=== PATIENT | female | born 1980 | race Caucasian/White ===

== ENCOUNTER 2018-09-08 19:18 | Emergency (ER) | payer BC ==
[2018-09-08] MEDS ORDERED: Ondansetron 4 MG Tab.DIS PO ONE (19:19)
[2018-09-08] MEDS ORDERED: Sodium Chloride 0.9% 1,000 ML IV ONE (19:38)
[2018-09-08] MEDS ORDERED: Ondansetron 4 MG/2 ML SDV IVPUSH PRN (19:59)
[2018-09-08] MEDS ORDERED: Pantoprazole 40 MG Vial IVPUSH SCH (20:00)
--- NOTE | 2018-09-08 20:04 | EDM.PDOC ---
ED HPI GENERAL MEDICAL PROBLEM - General Chief Complaint: Gastrointestinal Problem Stated Complaint: vomiting, epigastric pain Time Seen by Provider: 09/08/18 19:52 Source of Information: Reports: Patient History Limitations: Reports: No Limitations - History of Present Illness INITIAL COMMENTS - FREE TEXT/NARRATIVE: Started with nausea and mid abdominal pain Wednesday. Son and have had some of the same mid epigastric pain also. Has been dry heaving for the last 2 days. Has not kept anything down the last 1-2 days. Today she was vomiting water. She has urinated today. No fever with it. Has not taken any pain meds from her ankle surgery since yesterday AM. Had been taking a lot of advil prior to that and had been told that she needed to quit because of the healing effects of it. No diarrhea with it. States that the pain is midepigastric in nature. Does have some radiation into the right and left upper quadrants but mainly mid epigastric. Onset: Gradual Location: Reports: Abdomen Quality: Reports: Sharp Associated Symptoms: Reports: Nausea/Vomiting. 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: Endometrial Ablation, Endometriosis Neurological History: Reports: Migraines, Seizure Endocrine/Metabolic History: Reports: Obesity/BMI 30+ - Past Surgical History HEENT Surgical History: Reports: Adenoidectomy, Myringotomy w Tube(s), Oral Surgery, Tonsillectomy, Other (See Below) Other HEENT Surgeries/Procedures: ear drum reconstruction Female Surgical History: Reports: Other (See Below) Other Female Surgeries/Procedures: tubal removals Musculoskeletal Surgical History: Reports: Other (See Below) Other Musculoskeletal Surgeries/Procedures:: left ankle surgery, right tib/fib repair Social & Family History - Tobacco Use Smoking Status *Q: Never Smoker - Caffeine Use Caffeine Use: Reports: None - Recreational Drug Use Recreational Drug Use: No ED ROS GENERAL - Review of Systems Review Of Systems: See Below Constitutional: Denies: Fever, Chills HEENT: Reports: No Symptoms Respiratory: Reports: No Symptoms Cardiovascular: Reports: No Symptoms GI/Abdominal: Reports: Abdominal Pain, Nausea, Vomiting. Denies: Constipation, Diarrhea : Reports: No Symptoms Musculoskeletal: Reports: No Symptoms Skin: Reports: No Symptoms Neurological: Reports: No Symptoms ED EXAM, GI/ABD - Physical Exam Exam: See Below Exam Limited By: No Limitations General Appearance: Alert, WD/WN, No Apparent Distress Nose: Normal Inspection Throat/Mouth: Normal Inspection, Normal Oropharynx, No Airway Compromise Head: Atraumatic, Normocephalic Neck: Normal Inspection, Supple Respiratory/Chest: No Respiratory Distress, Lungs Clear, Normal Breath Sounds Cardiovascular: Regular Rate, Rhythm GI/Abdominal Exam: Normal Bowel Sounds, Soft, Tender (to the midepigastric area. ) Extremities: Normal Inspection, Non-Tender, Normal Capillary Refill, Other ( left foot and lower leg does have a boot on it from recent ankle surgery.) Neurological: Alert, Oriented, Normal Cognition Psychiatric: Normal Affect Skin Exam: Warm, Dry, Intact, Normal Color Course - Vital Signs Last Recorded V/S: Last Vital Signs Temp 98.8 F 09/08/18 19:19 Pulse 89 09/08/18 19:19 Resp 16 09/08/18 19:19 BP 134/93 H 09/08/18 20:49 Pulse Ox 97 09/08/18 19:19 - Orders/Labs/Meds Labs: Laboratory Tests 09/08/18 09/08/18 09/08/18 Range/Units 19:50 19:50 19:50 WBC 4.4 L (5.0-10.0) 10^3/uL RBC 4.53 (4.00-5.50) 10^6/uL Hgb 13.5 (12.0-16.0) g/dL Hct 40.8 (37.0-47.0) % MCV 90.1 (82.0-94.0) fL MCH 29.8 (27.0-32.0) pg MCHC 33.1 (33.0-38.0) g/dL RDW Coeff of Scott 12.6 (11.0-15.0) % Plt Count 313 (150-400) 10^3/uL Neut % (Auto) 76.0 (35-85) % Lymph % (Auto) 17.6 (10-55) % [place] % (Auto) 5.5 (0-16) % Eos % (Auto) 0.7 (0-5) % Baso % (Auto) 0.2 (0-3) % Neut # (Auto) 3.33 (1.80-7.00) 10^3/uL Lymph # (Auto) 0.77 L (1.00-4.80) 10^3/uL [place] # (Auto) 0.24 (0.00-0.80) 10^3/uL Eos # (Auto) 0.03 (0.00-0.45) 10^3/uL Baso # (Auto) 0.01 10^3/uL Sodium 139 (136-145) mEq/L Potassium 3.2 L (3.5-5.0) mEq/L Chloride 101 (98-106) mEq/L Carbon Dioxide 25 (21-32) mmol/L BUN 7 (7-18) mg/dL Creatinine 0.5 L (0.6-1.0) mg/dL Est Cr Clr Drug Dosing 134.32 mL/min Estimated GFR (MDRD) > 60 (>=60) mL/min Glucose 115 H (75-99) mg/dL Calcium 8.8 (8.4-10.1) mg/dL Total Bilirubin 0.4 (0.0-1.0) mg/dL AST 15 (15-37) U/L ALT 17 (12-78) U/L Alkaline Phosphatase 86 (46-116) U/L C-Reactive Protein 0.2 (0.2-0.8) mg/dL Total Protein 7.2 (6.4-8.2) g/dL Albumin 4.0 (3.4-5.0) g/dL Amylase 38 (25-115) U/L Lipase 90 (73-393) U/L Urine Color (YELLOW) Urine Appearance (CLEAR) Urine pH (4.5-8.0) Ur Specific [place] (1.003-1.020) Urine Protein (NEGATIVE) mg/dL Urine Glucose (UA) (NEGATIVE) mg/dL Urine Ketones (NEGATIVE) mg/dL Urine Occult Blood (NEGATIVE) Urine Nitrite (NEGATIVE) Urine Bilirubin (NEGATIVE) Urine Urobilinogen (0.2-1.0) EU/dL Ur Leukocyte Esterase (NEGATIVE) Urine RBC (0-5) /HPF Urine WBC (0-5) /HPF Ur Squamous Epith Cells (NOT SEEN) /HPF Urine Bacteria (NOT SEEN) /HPF 09/08/18 Range/Units 20:21 WBC (5.0-10.0) 10^3/uL RBC (4.00-5.50) 10^6/uL Hgb (12.0-16.0) g/dL Hct (37.0-47.0) % MCV (82.0-94.0) fL MCH (27.0-32.0) pg MCHC (33.0-38.0) g/dL RDW Coeff of [place] (11.0-15.0) % Plt Count (150-400) 10^3/uL Neut % (Auto) (35-85) % Lymph % (Auto) (10-55) % [place] % (Auto) (0-16) % Eos % (Auto) (0-5) % Baso % (Auto) (0-3) % Neut # (Auto) (1.80-7.00) 10^3/uL Lymph # (Auto) (1.00-4.80) 10^3/uL [place] # (Auto) (0.00-0.80) 10^3/uL Eos # (Auto) (0.00-0.45) 10^3/uL Baso # (Auto) 10^3/uL Sodium (136-145) mEq/L Potassium (3.5-5.0) mEq/L Chloride (98-106) mEq/L Carbon Dioxide (21-32) mmol/L BUN (7-18) mg/dL Creatinine (0.6-1.0) mg/dL Est Cr Clr Drug Dosing mL/min Estimated GFR (MDRD) (>=60) mL/min Glucose (75-99) mg/dL Calcium (8.4-10.1) mg/dL Total Bilirubin (0.0-1.0) mg/dL AST (15-37) U/L ALT (12-78) U/L Alkaline Phosphatase (46-116) U/L C-Reactive Protein (0.2-0.8) mg/dL Total Protein (6.4-8.2) g/dL Albumin (3.4-5.0) g/dL Amylase (25-115) U/L Lipase (73-393) U/L Urine Color Yellow (YELLOW) Urine Appearance Cloudy (CLEAR) Urine pH 6.5 (4.5-8.0) Ur Specific [place] 1.015 (1.003-1.020) Urine Protein Negative (NEGATIVE) mg/dL Urine Glucose (UA) Negative (NEGATIVE) mg/dL Urine Ketones 80 H (NEGATIVE) mg/dL Urine Occult Blood Small H (NEGATIVE) Urine Nitrite Negative (NEGATIVE) Urine Bilirubin Negative (NEGATIVE) Urine Urobilinogen 0.2 (0.2-1.0) EU/dL Ur Leukocyte Esterase Small H (NEGATIVE) Urine RBC 0-5 (0-5) /HPF Urine WBC 10-20 H (0-5) /HPF Ur Squamous Epith Cells Many H (NOT SEEN) /HPF Urine Bacteria Moderate H (NOT SEEN) /HPF Meds: Medications Discontinued Medications Generic Name Dose Route Start Last Admin Trade Name Freq PRN Reason Stop Dose Admin Sodium Chloride 1,000 mls @ 999 mls/hr 09/08/18 19:38 09/08/18 19:47 Normal Saline IV 09/08/18 20:38 999 mls/hr .BOLUS ONE Administration Ondansetron HCl 4 mg 09/08/18 19:59 09/08/18 20:07 Zofran IVPUSH 4 mg Q6H PRN Administration Nausea Ondansetron HCl 1 packet 09/08/18 20:37 09/08/18 20:44 Take Home: Ondansetron Odt 4 Mg, 2 Tab Pack PO 09/08/18 20:38 1 packet ONETIME ONE Administration Ondansetron HCl 8 mg 09/08/18 19:19 Zofran Odt PO 09/08/18 19:20 .STK-MED ONE Pantoprazole Sodium 40 mg 09/08/18 20:00 09/08/18 20:04 Protonix Iv IVPUSH 40 mg Q24H FAUSTINA Administration - Re-Assessments/Exams Free Text/Narrative Re-Assessment/Exam: 09/08/18 20:33 Discussed lab results with pt and . Zofran is helping with the nausea. Fluids are continuing to run. Wll infuse and then discharge with zofran for nausea and have her start prilosec OTC tomorrow. Departure - Departure Time of Disposition: 20:40 Disposition: Home, Self-Care 01 Condition: Good Clinical Impression: Gastroenteritis - Discharge Information *PRESCRIPTION DRUG MONITORING PROGRAM REVIEWED*: Not Applicable *COPY OF PRESCRIPTION DRUG MONITORING REPORT IN PATIENT PHIL: Not Applicable Instructions: Viral Gastroenteritis, Adult Referrals: PCP,None [Primary Care Provider] - Forms: ED Department Discharge Additional Instructions: zofran 4 mg ODT every 6 hours as needed Start omeprazole 20 mg daily tomorrow push fluids as much as possible avoid milk and milk products until pain is resolved. Recheck if any new concerns. Needs to have BP rechecked in a week or sooner to make sure it is coming down. - Problem List & Annotations (1) Gastroenteritis SNOMED Code(s): 85103500 Code(s): K52.9 - NONINFECTIVE GASTROENTERITIS AND COLITIS, UNSPECIFIED Status: Acute Priority: High - Problem List Review Problem List Initiated/Reviewed/Updated: Yes
[2018-09-08 20:10] LABS: CHLORIDE,CL 101 mEq/L (98-106); SODIUM,NA 139 mEq/L (136-145)
[2018-09-08] MEDS ORDERED: Take Home: Ondansetron 4 MG Tab.DIS, 2 Tab Pack PO ONE (20:37)
== END 2018-09-08 20:53 | disposition home or self-care (01) ==
LOC: CC.ED 19:18
DX: K52.9 Noninfective gastroenteritis and colitis, unspecified (principal); Z88.1 Allergy status to other antibiotic agents; Z88.8 Allergy status to other drugs, medicaments and biological substances
CPT/HCPCS: 36415; 80053; 81001; 82150; 83690; 85025; 86140; 96361; 96374; 96375; 99284-25; A9270-GY; C9113; J2405; J7030

== ENCOUNTER 2021-05-10 11:49 | Emergency (ER) | payer BC ==
[2021-05-10] MEDS ORDERED: Benzonatate 100 MG Cap PO ONE (12:52)
[2021-05-10] MEDS ORDERED: Albuterol 8 GM Inhaler INH STA (12:52)
[2021-05-10] MEDS ORDERED: Ondansetron 4 MG Tab.DIS PO ONE (12:52)
[2021-05-10] MEDS ORDERED: Ketorolac 60 MG/2 ML SDV IM ONE (12:55)
[2021-05-10] MEDS ORDERED: Take Home: Ondansetron 4 MG Tab.DIS, 2 Tab Pack PO ONE (12:55)
[2021-05-10] MEDS ORDERED: Famotidine 20 MG Tab PO STA (12:57)
--- NOTE | 2021-05-10 13:15 | EDM.PDOC ---
ED HPI GENERAL MEDICAL PROBLEM - General Chief Complaint: General Stated Complaint: "I think I have pneumonia" Time Seen by Provider: 05/10/21 11:55 Source of Information: Reports: Patient History Limitations: Reports: No Limitations - History of Present Illness Onset Date: 04/28/21 Duration: Getting Worse Location: Reports: Generalized Quality: Reports: Ache Severity: Mild Improves with: Reports: Medication, Rest Worsens with: Reports: Breathing, Movement Context: Reports: Sick Contact Associated Symptoms: Reports: Cough, Malaise, Nausea/Vomiting Treatments FOLLOW UP CLERK: Reports: Acetaminophen - Related Data Allergies Allergy/AdvReac Type Severity Reaction Status Date / Time doxycycline AdvReac Nausea Verified 05/10/21 11:50 erythromycin base AdvReac Nausea Verified 05/10/21 11:50 Tetracyclines AdvReac Nausea Verified 05/10/21 11:50 Home Meds: Home Meds Hydrocodone/Acetaminophen [Hydrocodon-Acetaminophen 5-325] 1 - 2 each PO Q4H PRN 09/08/18 [History] Ondansetron [Zofran ODT] 4 mg PO Q6H PRN 09/08/18 [History] Past Medical History HEENT History: Reports: Impaired Vision, Sinusitis 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: Endometrial Ablation, Endometriosis Neurological History: Reports: Migraines, Seizure Endocrine/Metabolic History: Reports: Obesity/BMI 30+ - Past Surgical History HEENT Surgical History: Reports: Adenoidectomy, Myringotomy w Tube(s), Oral Surgery, Tonsillectomy, Other (See Below) Other HEENT Surgeries/Procedures: ear drum reconstruction Female Surgical History: Reports: Other (See Below) Other Female Surgeries/Procedures: tubal removals Musculoskeletal Surgical History: Reports: Other (See Below) Other Musculoskeletal Surgeries/Procedures:: left ankle surgery, right tib/fib repair Social & Family History - Caffeine Use Caffeine Use: Reports: None ED ROS GENERAL - Review of Systems Review Of Systems: See Below Constitutional: Reports: Malaise, Fatigue HEENT: Reports: No Symptoms Respiratory: Reports: Cough Cardiovascular: Reports: No Symptoms Endocrine: Reports: No Symptoms GI/Abdominal: Reports: Nausea : Reports: No Symptoms Musculoskeletal: Reports: No Symptoms Skin: Reports: No Symptoms Neurological: Reports: No Symptoms Psychiatric: Reports: No Symptoms Hematologic/Lymphatic: Reports: No Symptoms Immunologic: Reports: No Symptoms ED EXAM, GENERAL - Physical Exam Exam: See Below Exam Limited By: No Limitations General Appearance: Alert, No Apparent Distress Ears: Normal External Exam Nose: Normal Inspection, Normal Mucosa Throat/Mouth: Normal Inspection, Normal Lips, Normal Teeth, Normal Gums, Normal Oropharynx, Normal Voice, No Airway Compromise Head: Atraumatic, Normocephalic Neck: Normal Inspection, Supple, Non-Tender, Full Range of Motion Respiratory/Chest: No Respiratory Distress, Lungs Clear, No Accessory Muscle Use, Chest Non-Tender, Other (lungs faintly coarse) Cardiovascular: Normal Peripheral Pulses, Regular Rate, Rhythm GI/Abdominal: Normal Bowel Sounds, Soft, Non-Tender, No Distention Back Exam: Full Range of Motion Extremities: Normal Inspection, Normal Range of Motion, Non-Tender, Normal Capillary Refill Neurological: Alert, Oriented, Normal Cognition, Normal Gait, No Motor/Sensory Deficits Psychiatric: Normal Affect, Normal Mood Skin Exam: Warm, Dry, Intact, Normal Color, No Rash Lymphatic: No Adenopathy Course - Orders/Labs/Meds Orders: Active Orders 24 hr Category Date Time Status Chest 2V [CR] Stat Exams 05/10/21 12:08 Taken Labs: Laboratory Tests 05/10/21 Range/Units 12:00 SARS CoV-2 RNA Rapid ZITA Positive H (NEGATIVE) Meds: Medications Discontinued Medications Generic Name Dose Route Start Last Admin Trade Name Chrisq PRN Reason Stop Dose Admin Albuterol 1 gm 05/10/21 12:52 05/10/21 13:16 Albuterol 8 Gm Inhaler INH 05/10/21 12:53 8 gm Q4H STA Administration Benzonatate 500 mg 05/10/21 12:52 05/10/21 13:15 Benzonatate 100 Mg Cap PO 05/10/21 12:53 500 mg ONETIME ONE Administration Famotidine 20 mg 05/10/21 12:57 05/10/21 13:15 Famotidine 20 Mg Tab PO 05/10/21 12:58 20 mg STAT STA Administration Ketorolac Tromethamine 60 mg 05/10/21 12:55 05/10/21 13:15 Ketorolac 60 Mg/2 Ml Sdv IM 05/10/21 12:56 60 mg ONETIME ONE Administration Ondansetron HCl 4 mg 05/10/21 12:52 05/10/21 13:15 Ondansetron 4 Mg Tab.Dis PO 05/10/21 12:53 4 mg ONETIME ONE Administration Ondansetron HCl 2 packet 05/10/21 12:55 05/10/21 13:14 Take Home: Ondansetron 4 Mg Tab.Dis, 2 Tab Pack PO 05/10/21 12:56 2 packet ONETIME ONE Administration - Re-Assessments/Exams Free Text/Narrative Re-Assessment/Exam: 05/10/21 14:15 Gave Pepcid, Ketorolac, Albuterol inhaler, Tessalon, Zofran in ER. Responded favorably. Departure - Departure Time of Disposition: 13:00 Disposition: Left Without Being Seen 07 Condition: Good Clinical Impression: COVID - Discharge Information Instructions: COVID-19 Frequently Asked Questions, 10 Things You Can Do to Manage Your COVID-19 Symptoms at Home - [facility] (12/06/2020) Forms: ED Department Discharge Additional Instructions: Vitamin C, D, and zinc per label directions. Melatonin at night. Daily aspirin. Pepcid per label. Follow up with Primary Care Provider. - Problem List & Annotations (1) COVID SNOMED Code(s): 231314427 Code(s): U07.1 - COVID-19 Status: Acute (2) COVID SNOMED Code(s): 343691703 Code(s): U07.1 - COVID-19 Status: Acute - My Orders Last 24 Hours: My Active Orders 05/10/21 12:08 Chest 2V [CR] Stat - Assessment/Plan Last 24 Hours: My Active Orders 05/10/21 12:08 Chest 2V [CR] Stat
== END 2021-05-10 13:30 | disposition home or self-care (01) ==
LOC: CC.ED 11:49
DX: U07.1 COVID-19 (principal); E66.9 Obesity, unspecified; Z68.37 Body mass index [BMI] 37.0-37.9, adult; Z88.1 Allergy status to other antibiotic agents; Z20.822 Contact with and (suspected) exposure to COVID-19
CPT/HCPCS: 71046; 87635; 96372; 99283; A9270; J1885; U0002

== ENCOUNTER 2022-02-07 10:25 | Emergency (ER) | payer BC ==
[2022-02-07 11:11] LABS: CHLORIDE,CL 100 mEq/L (98-106); SODIUM,NA 136 mEq/L (136-145)
[2022-02-07 11:12] LABS: ESTIMATED GFR 112 mL/min (>=60)
[2022-02-07] MEDS ORDERED: Potassium Chloride 10 MEQ Tab.ER PO ONE (11:18)
[2022-02-07] MEDS ORDERED: Nirmatrelvir/Ritonavir 300 MG/100 MG Dose Pack PO SCH (11:30)
== END 2022-02-07 11:45 | disposition home or self-care (01) ==
LOC: CC.ED 10:25
DX: U07.1 COVID-19 (principal); E87.6 Hypokalemia; E66.9 Obesity, unspecified; Z68.36 Body mass index [BMI] 36.0-36.9, adult; Z88.8 Allergy status to other drugs, medicaments and biological substances; Z88.1 Allergy status to other antibiotic agents; Z79.899 Other long term (current) drug therapy; Z86.16 Personal history of COVID-19
CPT/HCPCS: 36415; 71046; 80053; 85025; 99284; A9270-GY; U0002